=== PATIENT | male | born 1950 | race Caucasian/White ===

== ENCOUNTER 2018-04-04 18:48 | Emergency (ER) | payer OTHER, MEDICAID ==
[~2018-04-04] VITALS: Ht 180.3 cm; Wt 73.5 kg
[2018-04-04 18:55] VITALS: Ht 180.3 cm; Wt 73.5 kg
[2018-04-04 21:01] VITALS: BP 122/74
== END 2018-04-04 21:19 | disposition home or self-care (01) ==
LOC: ED 18:48
DX: M79.605 Pain in left leg (principal); J18.9 Pneumonia, unspecified organism; Z86.73 Personal history of transient ischemic attack (TIA), and cerebral infarction without residual deficits; Z90.89 Acquired absence of other organs
CPT/HCPCS: J2270